=== PATIENT | male | born 1970 | race Caucasian/White ===

== ENCOUNTER → 2017-06-29 | Outpatient (CLI) | payer OTHER ==
[~2017-06-29] MED LIST: CLONIDINE; GLUCAGON/GLUCAGE1 MG SUB-Q; GLUCOPHAGE1000 MG PO; GLUCOSE4 GM PO; HUMALOG100 UNIT/1 SUB-Q; KLOR-CON M2020 MEQ PO; MIDAMOR5 MG PO; NITROGLYCERIN0.2 MG TOP; NORVASC10 MG PO; SOLOSTAR INSULIN SUB-Q; TOPROL XL; TRANDATE300 MG PO; TYLENOL325 MG PO; ZESTRIL40 MG PO; [UNRECOGNIZED DRUG - OTHER]
== END | disposition disaster alternative care site (69) ==
LOC: GRAD 14:32
DX: N28.9 Disorder of kidney and ureter, unspecified (principal)